=== PATIENT | male | born 1955 | race Caucasian/White ===

== ENCOUNTER 2016-08-30 10:55 | Emergency (ER) | payer SELFPAY ==
[~2016-08-30 10:55] MED LIST: ASPIRIN BUFFER325 MG PO; LAMICTAL200 MG PO; LEVOTHYROXINE200 MC1 PO; SEROQUEL XR50 MG PO; SEROQUEL400 MG PO; VIIBRYD40 MG PO
[2016-08-30 11:20] LABS: EOSINOPHIL (%) 4.2 % (0-5); EOSINOPHIL COUNT 0.3 K/uL (0-0.3); HEMATOCRIT 45.4 % (38.0-50.0); IMMATURE GRANULOCYTE (%) 0.7 % (0.0-0.7); IMMATURE GRANULOCYTE COUNT 0.1 K/uL; INSTRUMENT ABS NEUTROPHIL CT 3.8 K/uL; LYMPHOCYTE COUNT 2.7 K/uL (1.0-2.8); MCH 30.3 PG (29.0-34.0); MCHC 34.6 G/DL (30.0-36.0); MCV 87.6 FL (86-99); MEAN PLAT.VOLUME 10.7 uM^3 (9.0-12.4); MONOCYTE (%) 10.5 % (3-12); MONOCYTE COUNT 0.8 K/uL (0-0.8); NEUTROPHIL (%) 49.3 % (45-76); NEUTROPHIL COUNT 3.8 K/uL (1.8-6.4); PLATELET COUNT 199 K/uL (156-360); RBC DIS.WIDTH-CV 12.5 % (11.8-14.6); RBC DIS.WIDTH-SD 40.1 % (39-53); RED BLOOD COUNT 5.18 M/uL (4.00-5.50); WHITE BLOOD COUNT 7.6 K/uL (4.1-10.2)
[2016-08-30 11:29] LABS: AMYLASE 115 IU/L (1-118); CHLORIDE 109 mEq/L (99-109); POTASSIUM 4.1 mEq/L (3.7-5.4); SODIUM 140 mEq/L (136-147)
[2016-08-30 11:31] LABS: GLUCOSE 122 mg/dL (70-99)
[2016-08-30 11:32] LABS: ANION GAP 15 MEQ/L (2-14)
[2016-08-30 11:34] LABS: SERUM ETHYL ALCOHOL < 10 mg/dL
[2016-08-30 11:35] LABS: GFR ESTIMATE (CALCULATED) > 59 mL/min/
[2016-08-30 11:36] LABS: UREA NITROGEN (BUN) 18 mg/dL (9-23)
[2016-08-30 11:38] LABS: LIPASE 32 U/L (1.0-51.0)
== END 2016-08-30 13:25 | disposition left against medical advice (07) ==
LOC: TRA 10:55
PROVIDERS: Emergency Medicine
PROC: 3E0234Z Introduction of Serum, Toxoid and Vaccine into Muscle, Percutaneous Approach (ICD-10-PCS; principal; 2016-08-30)
DX: S09.90XA Unspecified injury of head, initial encounter (principal); S01.01XA Laceration without foreign body of scalp, initial encounter; X58.XXXA Exposure to other specified factors, initial encounter; R55 Syncope and collapse; E11.9 Type 2 diabetes mellitus without complications; E03.9 Hypothyroidism, unspecified; Z79.84 Long term (current) use of oral hypoglycemic drugs
CPT/HCPCS: 70450; 80048; 81003; 82150; 83690; 85025; 86850; 86900; 86901; 93005; 99281; 99284; G0480